=== PATIENT | female | born 2000 | race Caucasian/White ===

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

== ENCOUNTER 2018-01-06 06:41 | Day surgery (SDC) | payer BC ==
[~2018-01-06 06:41] MED LIST: Buffered Lidocaine 0.9% SYRIN* 5 ML/SYR SYRINGE INTRADERM ONE
[2018-01-06] MEDS ORDERED: Propofol* 10 MG/ML 20 ML BTL IV PUSH ONE (06:48)
[2018-01-06] MEDS ORDERED: Dexamethasone IV* 4 MG/ML 1 ML (4 MG) ONE (07:00)
[2018-01-06] MEDS ORDERED: Ondansetron INJ* 2 MG/ML VIAL ONE (07:00)
[2018-01-06] MEDS ORDERED: Succinylcholine* 20 MG/ML 10 ML VIAL ONE (07:00)
[2018-01-06] MEDS ORDERED: Rocuronium* 10 MG/ML VIAL ONE (07:00)
[2018-01-06] MEDS ORDERED: Lidocaine 2% PF * 5 ML VIAL ONE (07:00)
[2018-01-06] MEDS ORDERED: fentaNYL* 50 MCG/ML 2 ML VIAL (100 MCG VIAL) ONE (07:01)
[2018-01-06] MEDS ORDERED: Midazolam* 1 MG/ML 2 ML VIAL (2 MG) ONE (07:01)
[2018-01-06] MEDS ORDERED: Metoclopramide IV* 5 MG/ML 2 ML VIAL ONE (08:10)
[2018-01-06] MEDS ORDERED: Glycopyrrolate IV* 0.2 MG/ML 1 ML VIAL ONE (08:15)
[2018-01-06] MEDS ORDERED: Neostigmine Methylsulfate* 2 MG/2 ML SYRINGE ONE (08:15)
[2018-01-06] MEDS ORDERED: Naloxone* 0.4 MG/ML 1 ML VIAL IV PRN (08:27)
[2018-01-06] MEDS ORDERED: Acetaminophen IV 1GM/100ML * 1,000 MG/100 ML VIAL IVPB ONE (08:27)
[2018-01-06] MEDS ORDERED: HYDROmorphone INJ* 0.5 MG/0.5 ML SYRINGE IV PRN (08:27)
[2018-01-06] MEDS ORDERED: HYDROmorphone INJ* 0.5 MG/0.5 ML SYRINGE ONE (08:31)
[2018-01-06] MEDS ORDERED: Acetaminophen IV 1GM/100ML * 100 ML ONE (08:32)
[2018-01-06 09:32] VITALS: BP 112/67
--- NOTE | 2018-01-06 15:06 | OP ---
OPERATIVE REPORT: DATE OF OPERATION: 01/06/18 - SDS DATE OF : 98. SURGEON: Alphonso Cleveland MD. ANESTHESIOLOGIST: Nadine Burnham DO. ANESTHESIA: General. PRE-OP DIAGNOSIS: Chronic tonsillitis. POST-OP DIAGNOSIS: Chronic tonsillitis. OPERATIVE PROCEDURE: Tonsillectomy. BRIEF HISTORY: This 17-year-old with chronic recurring tonsillitis. He elected for surgical management. DESCRIPTION OF PROCEDURE: The patient was taken to the operating room. General anesthesia was given. The patient was intubated. Tongue, mandible, and soft palate were retracted. Coblator was used to remove the tonsils on both sides. Once hemostasis was obtained, the patient was awakened and sent to recovery room in stable condition. Instrument and sponge count correct. Blood loss minimal. [id number]/CPS #: [id number] MTDD
== END 2018-01-06 09:57 | disposition home or self-care (01) ==
LOC: OR 06:41
PROVIDERS: ATTEND Otolaryngology
DX: J35.01 Chronic tonsillitis (principal)
CPT/HCPCS: 81025; 88304; J0330; J1100; J1170; J2250; J2405; J2704; J2765; J3010